=== PATIENT | female | born 1955 | race Caucasian/White ===

== ENCOUNTER 2016-12-20 04:52 | Observation (INO) | payer BC ==
[~2016-12-20] VITALS: Ht 172.7 cm; Wt 84.0 kg
[2016-12-20 05:11] LABS: BASO % 0.3 % (0.1-1.2); EOS # 0.1 10_X3_uL (0.0-0.4); EOS % 0.6 % (0.7-5.8); GRAN # 11.6 10_X3_uL (1.6-6.1); GRAN % 85.9 % (34.0-71.1); HEMATOCRIT 48.2 % (34-45); LYMPH # 1.1 10_X3_uL (1.2-3.7); LYMPH % 8.1 % (19.3-51.7); MEAN CORPUSCULAR HEMOGLOBIN 30.3 pg (27.0-33.0); MEAN CORPUSCULAR HGB CONC 33.2 g/dL (32.0-36.0); MEAN CORPUSCULAR VOLUME 91.3 fL (79-95); MEAN PLATELET VOLUME 8.9 fl (7.5-11.5); MONO # 0.7 10_X3_uL (0.2-0.9); MONO % 5.1 % (4.7-12.5); PLATELET COUNT 228 x10_3/uL (182-369); RED BLOOD COUNT 5.28 x10_6/uL (3.9-5.2); RED CELL DISTRIBUTION WIDTH 13.7 % (11.7-14.4); WHITE BLOOD COUNT 13.5 x10_3/uL (4.0-10.0)
[2016-12-20 06:08] LABS: ALBUMIN 4.2 gm/dL (3.4-5.0); ALKALINE PHOSPHATASE 81 U/L (50-136); ALT/SGPT 19 U/L (3.5-33.9); AST/SGOT 22 U/L (7.04-26.96); BILIRUBIN,TOTAL 0.33 mg/dL (0.0-1.0); BLOOD UREA NITROGEN 16 mg/dL (7-18); CALCIUM 9.5 mg/dL (8.7-10.7); CARBON DIOXIDE 25 mmol/L (21-32); CREATININE 0.6 mg/dL (0.6-1.3); GLUCOSE,RANDOM 140 mg/dL (70-99); LIPASE 28 U/L (6.75-60.75); POTASSIUM 4.2 mmol/L (3.5-5.1); SODIUM 139 mmol/L (136-145); TOTAL PROTEIN 7.2 gm/dL (6.4-8.2)
[2016-12-20 08:05] LABS: URINE BILIRUBIN NEGATIVE (NEGATIVE); URINE BLOOD 2+ (NEGATIVE); URINE GLUCOSE (UA) NORMAL (NORMAL); URINE KETONE 1+ (NEGATIVE); URINE LEUKOCYTE ESTERASE TRACE (NEGATIVE); URINE NITRATE NEGATIVE (NEGATIVE); URINE PROTEIN TRACE (NEGATIVE); UROBILINOGEN NORMAL mg/dL (<1.0)
[2016-12-20 08:36] LABS: URINE BACTERIA TRACE (NONE SEEN); URINE WBC 0-5 /[HPF] (0-5)
[2016-12-22 06:31] LABS: HEMATOCRIT 36.5 % (34-45); HEMOGLOBIN 11.9 g/dL (11.2-15.7); MEAN CORPUSCULAR HEMOGLOBIN 30.1 pg (27.0-33.0); MEAN CORPUSCULAR HGB CONC 32.6 g/dL (32.0-36.0); MEAN CORPUSCULAR VOLUME 92.4 fL (79-95); MEAN PLATELET VOLUME 9.3 fl (7.5-11.5); RED BLOOD COUNT 3.95 x10_6/uL (3.9-5.2); RED CELL DISTRIBUTION WIDTH 13.8 % (11.7-14.4); WHITE BLOOD COUNT 7.2 x10_3/uL (4.0-10.0)
[2016-12-22 06:45] LABS: BLOOD UREA NITROGEN 12 mg/dL (7-18); CALCIUM 8.3 mg/dL (8.7-10.7); CARBON DIOXIDE 22 mmol/L (21-32); CREATININE 0.6 mg/dL (0.6-1.3); GLUCOSE,RANDOM 90 mg/dL (70-99); POTASSIUM 3.7 mmol/L (3.5-5.1); SODIUM 144 mmol/L (136-145)
== END 2016-12-22 11:57 | disposition home or self-care (01) ==
LOC: ER 04:52 → MS 09:14 → UNDODEPER 12-23 09:53
PROVIDERS: Emergency Medicine; ADMIT Surgery
PROC: 0DTJ4ZZ Resection of Appendix, Percutaneous Endoscopic Approach (ICD-10-PCS; principal; 2016-12-20)
DX: K35.2 Acute appendicitis with generalized peritonitis (principal); R11.2 Nausea with vomiting, unspecified; R10.31 Right lower quadrant pain; I10 Essential (primary) hypertension; E03.9 Hypothyroidism, unspecified; J44.9 Chronic obstructive pulmonary disease, unspecified; Z98.51 Tubal ligation status; F17.210 Nicotine dependence, cigarettes, uncomplicated; Z79.899 Other long term (current) drug therapy; Z88.8 Allergy status to other drugs, medicaments and biological substances
CPT/HCPCS: 36415; 71010; 80048; 80053; 81001; 83690; 85025; 93005; 94664; 96361; 96365; 96366; 96367; 96372; 96375; 96376; 99070; 99284; 99285-25; G0378; J2704; J7040; Q9967

== ENCOUNTER → 2017-02-12 | Day surgery (SDC) | payer BC ==
[~2017-02-12] VITALS: Ht 172.7 cm; Wt 84.8 kg
== END ==
LOC: OPS 07:47
PROC: 0DB48ZX Excision of Esophagogastric Junction, Via Natural or Artificial Opening Endoscopic, Diagnostic (ICD-10-PCS; principal; 2017-02-12)
DX: K21.9 Gastro-esophageal reflux disease without esophagitis (principal); R10.13 Epigastric pain; J44.9 Chronic obstructive pulmonary disease, unspecified; E03.9 Hypothyroidism, unspecified; I10 Essential (primary) hypertension; M19.90 Unspecified osteoarthritis, unspecified site; F17.210 Nicotine dependence, cigarettes, uncomplicated; G43.909 Migraine, unspecified, not intractable, without status migrainosus; E78.5 Hyperlipidemia, unspecified; Z88.8 Allergy status to other drugs, medicaments and biological substances; Z79.899 Other long term (current) drug therapy; Z98.51 Tubal ligation status; Z82.49 Family history of ischemic heart disease and other diseases of the circulatory system; Z83.3 Family history of diabetes mellitus
CPT/HCPCS: 76705; 94664; 99070; J2704